=== PATIENT | male | born 1975 | race Caucasian/White ===

== ENCOUNTER 2022-01-06 22:13 | Emergency (ER) | payer OTHER ==
[~2022-01-06] VITALS: Ht 188 cm; Wt 103.4 kg
--- NOTE | 2022-01-06 22:40 | NUR ---
TO ER BED 10. BIBFAMILY. L POSTERIOR THIGH AND L CALF PAIN X 5 DAYS. PT IS ALERT AND ORIENTED. AMBULATORY WITH STEADY GAIT. CONNECTED TO MONITOR. AWAITING MD PLUNKETT
--- NOTE | 2022-01-06 23:01 | NUR ---
ULTRASOUND AT BEDSIDE
--- NOTE | 2022-01-07 00:45 | NUR ---
Patient does not wish to proceed with medical care recommended by Dr. Lambert. Patient given information related to possible complications, up to and including , which could occur as a result of leaving the hospital at this time. Patient verbalizes understanding of risks involved due to leaving against medical advice. Patient has signed AMA form.
[2022-01-07 01:37] VITALS: BP 130/80
== END 2022-01-07 01:38 | disposition left against medical advice (07) ==
LOC: ER 22:30
DX: M79.652 Pain in left thigh (principal); M79.651 Pain in right thigh; Z98.890 Other specified postprocedural states
CPT/HCPCS: 93970-TC